=== PATIENT | female | born 1990 | race Caucasian/White ===

== ENCOUNTER 2018-04-30 13:10 | Inpatient (IN) | payer MEDICAID ==
[2018-04-30] MEDS ORDERED: METHYLERGONOVINE 0.2 MG INJ IM (13:30)
[2018-04-30] MEDS ORDERED: OXYTOCIN 30 UNITS/LR 500 ML IV (13:30)
[2018-04-30] MEDS ORDERED: MISOPROSTOL 200 MCG TAB PR (13:30)
[2018-04-30] MEDS ORDERED: IBUPROFEN 600 MG TAB PO (13:30)
[2018-04-30] MEDS ORDERED: CARBOPROST 250 MCG INJ IM (13:30)
[2018-04-30] MEDS ORDERED: LIDOCAINE 1% (MPF) 30 ML INJ INJ (13:30)
[2018-04-30 14:19] LABS: ADD MAN DIFF? NO
[2018-04-30 14:20] LABS: WHITE BLOOD COUNT 11.6 10^3/ul (4.8-10.8)
[2018-04-30 14:20] LABS: BASOPHILS % 0.3 % (0.0-2.0); EOSINOPHILS # 0.1 10^3/ul (0.0-0.5); EOSINOPHILS % 0.8 % (0.0-7.0); HEMATOCRIT 40.9 % (37.0-47.0); HEMOGLOBIN 13.8 g/dl (12.0-16.0); LYMPHOCYTES # 1.3 10^3/ul (0.8-2.9); LYMPHOCYTES % 11.1 % (15.0-51.0); MEAN CORPUSCULAR HEMOGLOBIN 29.9 pg (29.0-33.0); MEAN CORPUSCULAR HGB CONC 33.7 g/dl (32.0-37.0); MEAN CORPUSCULAR VOLUME 88.7 fl (82.0-101.0); MEAN PLATELET VOLUME 10.3 fl (7.4-10.4); MONOCYTE # 0.7 10^3/ul (0.3-0.9); MONOCYTES % 6.3 % (0.0-11.0); NEUTROPHIL # 9.4 10^3/ul (1.6-7.5); NEUTROPHILS % 80.6 % (39.0-77.0); PLATELET COUNT 189 10^3/UL (140-415); RED BLOOD COUNT 4.61 10^6/ul (4.20-5.40); RED CELL DISTRIBUTION WIDTH 13.2 % (11.5-14.5)
[2018-04-30] MEDS: LACTATED RINGER'S 1,000 ML IV* ×2 (14:24→20:16)
[2018-04-30 14:39] LABS: INR 0.87; PROTIME 11.9 Sec (11.9-14.9); PT RATIO 0.9
[2018-04-30 15:01] LABS: RAPID PLASMA REAGIN NONREACTIVE (NR)
[2018-04-30] MEDS ORDERED: MISOPROSTOL 100 MCG TAB PO (16:30)
[2018-04-30 16:49] LABS: HEPATITIS B SURFACE ANTIGEN NEGATIVE (NEGATIVE)
[2018-04-30 17:04] LABS: GLUCOSE 105 mg/dl (70-220)
[2018-04-30] MEDS: MISOPROSTOL 25 MCG CAPSULE PO ×2 (17:05→21:12)
[2018-05-01] MEDS: MISOPROSTOL 25 MCG CAPSULE PO ×4 (01:19→16:15)
[2018-05-01] MEDS: LACTATED RINGER'S 1,000 ML IV* ×2 (03:36→11:45)
[2018-05-01] MEDS: OXYTOCIN 30 UNITS/LR 500 ML IV (21:30)
[2018-05-02] MEDS: BUTORPHANOL 2 MG INJ IV (01:23)
[2018-05-02] MEDS: LACTATED RINGER'S 1,000 ML IV* ×3 (02:48→14:38)
[2018-05-02] MEDS ORDERED: FENTAnyl 2MCG/ML-ROPIV 0.2% 100 ML (03:43)
[2018-05-02] MEDS: OXYTOCIN 30 UNITS/LR 500 ML IV ×3 (06:14→09:27)
[2018-05-02] MEDS ORDERED: HYDROCODONE/APAP (5/325) TAB PO (07:00)
[2018-05-02] MEDS ORDERED: CARBOPROST 250 MCG INJ IM (07:00)
[2018-05-02] MEDS ORDERED: OXYTOCIN 30 UNITS/LR 500 ML IV (07:00)
[2018-05-02] MEDS ORDERED: METHYLERGONOVINE 0.2 MG INJ IM (07:00)
[2018-05-02] MEDS ORDERED: MISOPROSTOL 200 MCG TAB PR (07:00)
[2018-05-02] MEDS ORDERED: NALOXONE (0.4 MG/ML) INJ IV (09:00)
[2018-05-02] MEDS ORDERED: FENTAnyl 2MCG/ML-ROPIV 0.2% 100 ML BAG EPI (09:00)
[2018-05-02] MEDS: LANOLIN 7 GM TUBE TOP (09:24)
[2018-05-02] MEDS: BENZOCAINE 20% 56 ML SPRAY TOP (09:25)
[2018-05-02] MEDS: IBUPROFEN 600 MG TAB PO ×3 (12:06→23:49)
[2018-05-03] MEDS: IBUPROFEN 600 MG TAB PO ×3 (05:40→18:10)
[2018-05-03 07:33] LABS: ADD MAN DIFF? NO
[2018-05-03 07:36] LABS: BASOPHIL # 0.1 10^3/ul (0.0-0.1); BASOPHILS % 0.4 % (0.0-2.0); EOSINOPHILS # 0.3 10^3/ul (0.0-0.5); HEMOGLOBIN 12.1 g/dl (12.0-16.0); MEAN CORPUSCULAR HEMOGLOBIN 30.3 pg (29.0-33.0); MEAN CORPUSCULAR HGB CONC 33.6 g/dl (32.0-37.0); MEAN CORPUSCULAR VOLUME 90.2 fl (82.0-101.0); MEAN PLATELET VOLUME 10.7 fl (7.4-10.4); MONOCYTES % 8.2 % (0.0-11.0); NEUTROPHIL # 9.1 10^3/ul (1.6-7.5); NEUTROPHILS % 72.4 % (39.0-77.0); PLATELET COUNT 192 10^3/UL (140-415); RED BLOOD COUNT 3.99 10^6/ul (4.20-5.40); RED CELL DISTRIBUTION WIDTH 13.2 % (11.5-14.5)
[2018-05-03 07:36] LABS: WHITE BLOOD COUNT 12.5 10^3/ul (4.8-10.8)
[2018-05-04] MEDS: IBUPROFEN 600 MG TAB PO ×4 (00:10→17:45)
[2018-05-04] MEDS: DIPHTH/TET/ACEL PERTUSS (ADULT) 0.5 ML VIAL IM* (11:26)
== END 2018-05-04 18:18 | disposition home or self-care (01) | DRG 775 ==
LOC: PP1 05-02 07:42 → L-D 13:10
PROVIDERS: Obstetrics & Gynecology
PROC: 10E0XZZ Delivery of Products of Conception, External Approach (ICD-10-PCS; principal; 2018-05-02)
PROC: 3E033VJ Introduction of Other Hormone into Peripheral Vein, Percutaneous Approach (ICD-10-PCS; 2018-05-02)
PROC: 0HQ9XZZ Repair Perineum Skin, External Approach (ICD-10-PCS; 2018-05-02)
DX: O24.429 Gestational diabetes mellitus in childbirth, unspecified control (principal); O70.0 First degree perineal laceration during delivery; Z3A.38 38 weeks gestation of pregnancy; Z37.0 Single live birth
CPT/HCPCS: 59025; 62319; 76816; 76818; 82947; 82962; 85025; 85610; 85730; 86592; 86850; 86900; 86901; 87340; 90715; 99464